=== PATIENT | female | born 1960 | race Asian ===

== ENCOUNTER → 2020-06-22 12:30 | Outpatient (CLI) | payer OTHER, SELFPAY ==
--- NOTE | 2020-06-22 | DI.MG.S_ITS ---
BILATERAL DIGITAL SCREENING MAMMOGRAM 3D/2D WITH CAD: 06/22/2020 CLINICAL: Routine screening. Baseline exam. Family history of breast cancer. No prior exams were available for comparison. The tissue of both breasts is heterogeneously dense. This may lower the sensitivity of mammography. Current study was also evaluated with a Computer Aided Detection (CAD) system. There is an oval low density mass with an obscured and microlobulated margin in the right breast central to the nipple anterior depth. There also is an equal density asymmetry in the right breast anterior depth inferior region seen on the mediolateral oblique view only. There are grouped punctate calcifications in the left breast posterior depth medial region seen on the craniocaudal view only. There also is a low density mass in the left breast at 7 o'clock anterior depth. No other significant masses or calcifications are seen in either breast. IMPRESSION: INCOMPLETE: NEEDS ADDITIONAL IMAGING EVALUATION 1) The oval low density mass in the right breast central to the nipple anterior depth resembles a cyst and is indeterminate. -Additional views with possible ultrasound are recommended. 2) The equal density asymmetry in the right breast anterior depth inferior region seen on the mediolateral oblique view only is indeterminate. -Additional views with possible ultrasound are recommended. 3) The grouped punctate calcifications in the left breast posterior depth medial region seen on the craniocaudal view only are indeterminate. -Additional views are recommended. 4) The low density mass in the left breast at 7 o'clock anterior depth resembles a cyst and is indeterminate. -Additional views with possible ultrasound are recommended. This exam was interpreted at Station ID: [id number]. NOTE: For mammograms, a report in lay terms will be sent to the patient. Approximately 15% of breast malignancies will not be visualized mammographically. In the management of a palpable breast mass, a negative mammogram must not discourage biopsy of a clinically suspicious lesion. Electronically Signed By: Paulo Lomax M.D. slc/:06/25/2020 13:21:33 letter sent: Additional Imaging Needed ACR BI-RADS Category 0: Incomplete [id number]
== END ==
PROVIDERS: PCP Family Medicine; Referring Provider Family Medicine; Visit Provider Family Medicine
DX: Z12.31 Encounter for screening mammogram for malignant neoplasm of breast (principal); Z80.3 Family history of malignant neoplasm of breast
CPT/HCPCS: 77063; 77067

== ENCOUNTER → 2020-07-23 14:07 | Outpatient (CLI) | payer OTHER, SELFPAY ==
--- NOTE | 2020-07-23 | DI.MG.S_ITS ---
UNILATERAL LEFT DIGITAL DIAGNOSTIC MAMMOGRAM 3D/2D WITH ADDITIONAL VIEWS: 07/23/2020 CLINICAL: Additional evaluation requested from prior study. Comparison is made to exams dated: 06/22/2020 mammogram - [facility], 09/29/2018 mammogram, and 08/18/2017 mammogram - outside location. The tissue of left breast is heterogeneously dense. This may lower the sensitivity of mammography. There are grouped punctate round calcifications in the left breast at 11 o'clock posterior depth. No other significant masses or calcifications are seen in the breast. IMPRESSION: PROBABLY BENIGN The grouped punctate round calcifications in the left breast are probably benign. A follow-up mammogram in 6 months is recommended. A follow-up mammogram in 6 months is recommended to demonstrate stability. This exam was interpreted at Station ID: [id number]. NOTE: For mammograms, a report in lay terms will be sent to the patient. Approximately 15% of breast malignancies will not be visualized mammographically. In the management of a palpable breast mass, a negative mammogram must not discourage biopsy of a clinically suspicious lesion. Electronically Signed By: Phani adhikari/:07/23/2020 14:57:44 letter sent: Followup Recommended ACR BI-RADS Category 3: Probably benign [id number]
== END ==
PROVIDERS: PCP Family Medicine; Referring Provider Family Medicine; Visit Provider Family Medicine
DX: R92.8 Other abnormal and inconclusive findings on diagnostic imaging of breast (principal); R92.1 Mammographic calcification found on diagnostic imaging of breast
CPT/HCPCS: 77065; G0279

== ENCOUNTER → 2021-01-06 14:50 | Outpatient (CLI) | payer OTHER, SELFPAY ==
--- NOTE | 2021-01-06 | DI.MG.S_ITS ---
UNILATERAL LEFT DIGITAL DIAGNOSTIC MAMMOGRAM 3D/2D: 01/06/2021 CLINICAL: Short term follow up. Comparison is made to exams dated: 07/23/2020 mammogram, 06/22/2020 mammogram - [facility], and 09/29/2018 mammogram - outside location. The tissue of left breast is heterogeneously dense. This may lower the sensitivity of mammography. There are stable grouped round calcifications in the left breast at 11 o'clock posterior depth. No other significant masses or calcifications are seen in the breast. IMPRESSION: PROBABLY BENIGN Stable grouped round calcifications in the left breast are probably benign. A follow-up mammogram in 6 months is recommended to demonstrate stability. Patient will be due for right breast mammogram at that time. Exam findings were conveyed to the patient. This exam was interpreted at Station ID: [id number]. NOTE: For mammograms, a report in lay terms will be sent to the patient. Approximately 15% of breast malignancies will not be visualized mammographically. In the management of a palpable breast mass, a negative mammogram must not discourage biopsy of a clinically suspicious lesion. Electronically Signed By: Paulo Lomax M.D. [facility]/:01/06/2021 15:39:07 letter sent: Followup Recommended ACR BI-RADS Category 3: Probably benign [id number]
== END ==
PROVIDERS: PCP Family Medicine; Referring Provider Family Medicine; Visit Provider Family Medicine
DX: R92.8 Other abnormal and inconclusive findings on diagnostic imaging of breast (principal); R92.1 Mammographic calcification found on diagnostic imaging of breast
CPT/HCPCS: 77065; G0279

== ENCOUNTER → 2021-06-27 14:12 | Outpatient (CLI) | payer OTHER, SELFPAY ==
--- NOTE | 2021-06-27 14:14 | DI.MG.S_ITS ---
BILATERAL DIGITAL DIAGNOSTIC MAMMOGRAM 3D/2D SHORT-TERM FOLLOW-UP: 06/27/2021 CLINICAL: Short term follow up of the left breast, due for bilateral imaging. Comparison is made to exams dated: 01/06/2021 mammogram, 07/23/2020 mammogram, and 06/22/2020 mammogram - [facility]. The tissue of both breasts is heterogeneously dense. This may lower the sensitivity of mammography. There are stable grouped punctate round calcifications in the left breast at 11 o'clock posterior depth. No other significant masses, calcifications, or other findings are seen in either breast. IMPRESSION: PROBABLY BENIGN The stable grouped punctate round calcifications in the left breast are probably benign. A follow-up left mammogram in 6 months is recommended to demonstrate stability. Findings and recommendations were conveyed to the patient at time of exam. This exam was interpreted at Station ID: [id number]. NOTE: For mammograms, a report in lay terms will be sent to the patient. Approximately 15% of breast malignancies will not be visualized mammographically. In the management of a palpable breast mass, a negative mammogram must not discourage biopsy of a clinically suspicious lesion. Electronically Signed By: Sasha eddy/:06/27/2021 14:56:48 letter sent: Followup Recommended ACR BI-RADS Category 3: Probably benign [id number]
== END ==
PROVIDERS: PCP Family Medicine; Referring Provider Family Medicine; Visit Provider Family Medicine
DX: R92.8 Other abnormal and inconclusive findings on diagnostic imaging of breast (principal); R92.1 Mammographic calcification found on diagnostic imaging of breast
CPT/HCPCS: 77066; G0279

== ENCOUNTER → 2024-01-06 10:07 | Outpatient (CLI) | payer OTHER, SELFPAY ==
--- NOTE | 2024-01-06 10:09 | DI.US.S_ITS ---
LIMITED ULTRASOUND OF RIGHT BREAST AND AXILLA: 01/06/2024 CLINICAL: Patient returns for additional imaging over a suspected mass in the right breast. Comparison is made to exams dated: 01/06/2024 mammogram - [facility], 12/03/2023 mammogram, 11/03/2022 mammogram - out side, 01/06/2021 mammogram - [facility], 09/02/2016 mammogram, and 08/18/2017 mammogram - outside location. Color flow and real-time ultrasound of the right breast 11 o'clock, and axilla regions were performed. Ashford scale images of the real-time examination were reviewed. There is a stable 1.5 cm x 0.9 cm x 0.7 cm oval mass in the right breast at 11 o'clock anterior depth 3 cm from the nipple. This oval mass is hypoechoic. This correlates with mammography findings. Color flow imaging demonstrates that there is no vascularity present. No significant abnormalities were seen sonographically in the right axilla. IMPRESSION: BENIGN There is no sonographic evidence of malignancy. 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 Long-term stable on mammogram. No enlarged right axillary lymph nodes. Exam findings were conveyed to the patient. Patient is advised to monitor for significant change. Clinical follow-up as needed. A 1 year screening mammogram is recommended. This exam was interpreted at Station ID: [id number]. Electronically Signed By: Paulo Lomax M.D. slc/:01/06/2024 12:39:49 letter sent: Normal Exam Ultrasound BI-RADS: 2 Benign
--- NOTE | 2024-01-06 10:09 | DI.MG.S_ITS ---
UNILATERAL RIGHT DIGITAL DIAGNOSTIC MAMMOGRAM 3D/2D WITH ADDITIONAL VIEWS: 01/06/2024 CLINICAL: Additional evaluation requested from prior study. Comparison is made to exams dated: 12/03/2023 mammogram, 11/03/2022 mammogram - out side, and 06/27/2021 mammogram - [facility]. The right breast is heterogeneously dense, which may obscure small masses (category c / 51-75% glandular tissue). There is a stable oval mass in the right breast at 12 o'clock anterior depth. No other significant masses or calcifications are seen in the breast. IMPRESSION: INCOMPLETE: NEEDS ADDITIONAL IMAGING EVALUATION The stable oval mass in the right breast resembles a fibroadenoma and is indeterminate. A targeted ultrasound is recommended and will immediately follow. Based on the Tyrer Cuzick model (a risk assessment model) the patient's lifetime risk is 14.4% and her 10 year risk is 6.2%. According to the ACR, ACS, and NCCN guidelines, an annual breast MRI exam along with mammogram is recommended if the patient's lifetime risk is 20% or greater. This exam was interpreted at Station ID: [id number]. NOTE: For mammograms, a report in lay terms will be sent to the patient. Approximately 15% of breast malignancies will not be visualized mammographically. In the management of a palpable breast mass, a negative mammogram must not discourage biopsy of a clinically suspicious lesion. Electronically Signed By: Paulo Lomax M.D. slc/:01/06/2024 10:54:06 ACR BI-RADS Category 0: Incomplete [id number]
== END ==
PROVIDERS: PCP Family Medicine; Referring Provider Nurse Practitioner Family; Visit Provider Nurse Practitioner Family
DX: R92.8 Other abnormal and inconclusive findings on diagnostic imaging of breast (principal); N63.11 Unspecified lump in the right breast, upper outer quadrant; R92.331 Mammographic heterogeneous density, right breast
CPT/HCPCS: 76642; 77065; G0279

== ENCOUNTER 2024-07-13 10:14 | Day surgery (SDC) | payer OTHER, SELFPAY ==
[2024-07-13 10:59] VITALS: BP 154/87; PULSE 80; RESP 14; TEMP 36.8; O2SAT 98
--- NOTE | 2024-07-13 11:19 | PM.HP.1 ---
History of Present Illness History of Present Illness Date Patient Seen: 07/13/24 Time Patient Seen: 11:19 Chief complaint: Colonoscopy Narrative: Lex is a 64-year-old woman here for colonoscopy. Her last was about 12 years ago and she thinks it was normal. She is not aware of any family history of colon cancer [facility] Surgical History (Updated 07/13/24 @ 10:53 by Sydnee Mclean RN) Hx of hysterectomy Social History Smoking Status: Never smoker alcohol intake: current Meds Home Medications and Allergies Home Medications Medication Instructions Recorded Confirmed Type sodium,potassium,mag sulfates 17.5 See Rx Instructions PO .COMPLEX 06/05/24 Rx gram-3.13 gram-1.6 gram oral soln #354 mL (Suprep Bowel Prep Kit) loratadine 10 mg tablet 10 mg PO DAILY 07/13/24 07/13/24 History Allergies Allergy/AdvReac Type Severity Reaction Status Date / Time No Known Drug Allergies Allergy Verified 07/13/24 10:53 Exam Vital Signs (past 8 hours): - 07/13/24 10:59 Temperature 98.3 F Pulse Rate 80 Respiratory Rate 14 Blood Pressure 154/87 H Pulse Oximetry 98 Oxygen Delivery Method Room Air Oxygen Delivery Method Room Air Const General: healthy appearing Assessment & Plan Assessment and plan (1) Colon cancer screening: Status: Acute Plan Colonoscopy Time-Based Coding :: [TOTAL MINUTES] spent with patient and on the chart (including review of chart, obtaining history, exam, reviewing outside data, placing orders, documenting exam and treatment plan, and counseling patient) on [DATE].
--- NOTE | 2024-07-13 12:17 | PM.OP.COLON ---
Operative Date/Time/Diagnoses Date of procedure: 07/13/24 Time of procedure: 12:17 Pre-op diagnosis: Colon cancer screening Post-op diagnosis: same Procedure & Clinicians Study performed: Colonoscopy Same procedure as scheduled: Yes Surgeon: Franc Saenz Procedure Notes Procedure in detail: Surgeon: Franc Saenz MD Anesthesia: Reina Montero CRNA Procedure: The patient was brought to the endoscopy suite, placed in left lateral decubitus position. The patient was connected to monitoring devices. A time-out was performed. Sedation was administered. Once the patient was adequately sedated, a digital rectal exam was performed and was normal. The scope was then inserted and advanced to the cecum where the appendiceal orifice was identified and photographed. The scope was then slowly withdrawn over greater than 6 minutes. The mucosa was thoroughly inspected. No abnormalities were identified. The scope was retroflexed in the rectum. The scope was straightened and removed. The patient was awakened and brought to recovery. Scope withdrawal time: 6 minutes Sedation time: 17 minute EBL: 0 Findings: Normal colon Post-procedure Recommendations: Colonoscopy in 10 years Disposition: PACU
[2024-07-13 12:20] VITALS: BP 85/56; PULSE 83; RESP 16
[2024-07-13 12:21] VITALS: BP 85/55; PULSE 82; RESP 16; TEMP 36.2; O2SAT 94
[2024-07-13 12:26] VITALS: BP 85/56; PULSE 96; RESP 16; O2SAT 95
[2024-07-13 12:31] VITALS: BP 81/57; PULSE 94; RESP 16; TEMP 36.2; O2SAT 95
[2024-07-13 12:59] VITALS: BP 122/64; PULSE 77; RESP 18; O2SAT 97
== END 2024-07-13 12:55 | disposition home or self-care (01) ==
PROVIDERS: PCP Family Medicine; Referring Provider Surgery; Visit Provider Surgery
PROC: 0DJD8ZZ Inspection of Lower Intestinal Tract, Via Natural or Artificial Opening Endoscopic (ICD-10-PCS; CPT 45378; principal; 2024-07-13 11:30)
DX: Z12.11 Encounter for screening for malignant neoplasm of colon (principal)
CPT/HCPCS: 45378; J2405; J2704

== ENCOUNTER → 2025-01-05 10:45 | Outpatient (CLI) | payer OTHER, SELFPAY ==
--- NOTE | 2025-01-05 10:47 | DI.RAD.S_ITS ---
PROCEDURE: XR DEXA AXIAL SKELETON INDICATIONS: SCRN OSTEOPENIA,POSTMENOPAUSAL COMPARISON: None. FINDINGS: Lumbar Spine: Bone mineral density 0.705 g/cm2, T score -3.1, osteoporosis. Left Femoral Neck: Bone mineral density 0.565 g/cm2, T score -2.6. Left Hip: Bone mineral density is 0.714 g/cm2, T score -1.9, osteopenia. Fracture Risk Calculation (when applicable): 10-year fracture risk of a major osteoporotic fracture 6.1 percent and of a hip fracture 1.2 percent. (T score greater or equal to -1.0 to: NORMAL) (T score from -1.1 to -2.4: OSTEOPENIA) (T score less than or equal to -2.5: OSTEOPOROSIS) IMPRESSION: Lumbar spine osteoporosis Follow-up guidelines as follows: Osteoporosis: Consider a repeat DEXA and Vertebral Fracture Assessment (VFA) exam in 2 years or sooner if medically necessary, to reassess this patient's status. Osteopenia: Consider a repeat DEXA in 2-3 years to reassess this patient's status, or if there is a new clinical indication. Normal: Consider a repeat DEXA in 5 years or sooner, or if there is a new clinical indication. All treatment decisions require clinical judgment and consideration of individual patient factors, including patient preferences, comorbidities, previous drug use, risk factors not captured in the FRAX model (e.g., frailty, falls, vitamin D deficiency, increased bone turnover, interval significant decline in bone density ) and possible under- or over-estimation of fracture risk by FRAX. In addition, the NOF Guide recommends that FDA-approved medical therapies be considered in postmenopausal women and men age >= 50 years with a: * Hip or vertebral (clinical or morphometric) fracture * T-score of <=-2.5 at the spine or hip * Ten-year fracture probability by FRAX of >= 3% for hip fracture or >=20% for major osteoporotic fracture. Approved by: Fred Markham M.D. on 01/05/2025 at 14:55
== END ==
LOC: RAD 10:46
PROVIDERS: PCP Family Medicine; Referring Provider Family Medicine; Visit Provider Family Medicine
DX: Z13.820 Encounter for screening for osteoporosis (principal); M81.0 Age-related osteoporosis without current pathological fracture; Z78.0 Asymptomatic menopausal state; Z82.62 Family history of osteoporosis
CPT/HCPCS: 77080